=== PATIENT | male | born 1945 | race Caucasian/White ===

== ENCOUNTER → 2022-08-25 | Outpatient (CLI) | payer MEDICARE | END | disposition home or self-care (01) | LOC: LAB 09:25 | PROVIDERS: ATTEND Psychiatry & Neurology Behavioral Neurology & Neuropsychiatry | DX: R41.89 Other symptoms and signs involving cognitive functions and awareness (principal) ==

== ENCOUNTER 2022-12-01 03:57 | Inpatient (IN) | payer MEDICARE ==
[~2022-12-01] VITALS: Ht 177.8 cm; Wt 67.8 kg
[2022-12-01] VITALS (7 sets, daily range): BP systolic 135–160; BP diastolic 61–77
[2022-12-01] MEDS ORDERED: ASPIRIN81 M1 PO (04:11)
[2022-12-01] MEDS ORDERED: LIPITOR80 MG PO (04:12)
[2022-12-01] MEDS ORDERED: NAMENDA10 MG PO (04:12)
[2022-12-01] MEDS ORDERED: LEVOTHYROXINE50 MCG PO (04:12)
[2022-12-01 04:41] LABS: BASO % 0.5 % (0.0-1.0); EOS # 0.2 10*3/uL (0.0-0.4); EOS % 3.6 % (1.0-4.0); HEMATOCRIT 41.3 % (42.0-52.0); LYMPH # 0.8 10*3/uL (1.3-4.4); LYMPH % 19.1 % (27.0-41.0); MEAN CORPUSCULAR HGB 34.1 pg (27.0-31.0); MEAN CORPUSCULAR HGB CONC 33.4 g/dl (33.0-37.0); MONO # 0.3 10*3/uL (0.1-1.0); MONO % 7.5 % (3.0-9.0); NEUT % 69.1 % (47.0-73.0); PLATELET COUNT AUTOMATED 151 10*3/uL (130-400); RED BLOOD COUNT 4.05 10*6/uL (4.50-5.90); RED CELL DISTRI WIDTH 13.3 % (0-14.5); WHITE BLOOD COUNT 4.4 10*3/uL (4.8-10.8)
[2022-12-01 04:49] LABS: BILIRUBIN Negative (Negative); BLOOD Negative (Negative); CLARITY Clear (Clear); COLOR Yellow (Yellow); GLUCOSE Negative (Negative); KETONE Negative (Negative); LEUKO ESTERASE Negative (Negative); NITRITE Negative (Negative); UROBILINOGEN 0.2 E.U./dl (0.0-1.0)
[2022-12-01 04:55] LABS: ALKALINE PHOSPHATASE 81 U/L (46-116); BUN 16 mg/dl (9-23); CHLORIDE 106 mmol/L (98-107); POTASSIUM 3.8 mmol/L (3.4-5.1); SGPT/ALT 16 U/L (10-49); TOTAL PROTEIN 6.7 gm/dL (6.0-8.0)
[2022-12-01 05:25] LABS: RBC 0-2 rbc/hpf (0-2); WBC 0-2 wbc/hpf (0-5)
[2022-12-02] VITALS: BP 138/59
[2022-12-02 05:36] LABS: ALKALINE PHOSPHATASE 82 U/L (46-116); BUN 12 mg/dl (9-23); CHLORIDE 107 mmol/L (98-107); POTASSIUM 3.7 mmol/L (3.4-5.1); SGPT/ALT 19 U/L (10-49); TOTAL PROTEIN 6.2 gm/dL (6.0-8.0)
[2022-12-02 05:53] LABS: BASO % 0.4 % (0.0-1.0); EOS # 0.2 10*3/uL (0.0-0.4); EOS % 3.6 % (1.0-4.0); LYMPH # 0.9 10*3/uL (1.3-4.4); LYMPH % 18.5 % (27.0-41.0); MEAN CELL VOLUME 101.8 fl (80.0-94.0); MEAN CORPUSCULAR HGB 33.8 pg (27.0-31.0); MEAN CORPUSCULAR HGB CONC 33.3 g/dl (33.0-37.0); MEAN PLATELET VOLUME 9.5 fl (9.6-12.3); MONO # 0.5 10*3/uL (0.1-1.0); MONO % 9.3 % (3.0-9.0); NEUT # 3.4 10*3/uL (2.3-7.9); NEUT % 67.6 % (47.0-73.0); PLATELET COUNT AUTOMATED 154 10*3/uL (130-400); RED BLOOD COUNT 3.93 10*6/uL (4.50-5.90); RED CELL DISTRI WIDTH 13.5 % (0-14.5)
[2022-12-02 08:00] VITALS: BP 140/67
[2022-12-02 12:00] VITALS: BP 125/59
[2022-12-02 16:00] VITALS: BP 127/66
[2022-12-02 20:00] VITALS: BP 125/53
[2022-12-03] VITALS: BP 118/57
[2022-12-03 05:39] LABS: ALKALINE PHOSPHATASE 76 U/L (46-116); BUN 10 mg/dl (9-23); CHLORIDE 107 mmol/L (98-107); CHOLESTEROL 99 mg/dL (<200); LDL CHOLESTEROL 43 mg/dL (9-159); POTASSIUM 3.9 mmol/L (3.4-5.1); SGPT/ALT 12 U/L (10-49); TOTAL PROTEIN 5.9 gm/dL (6.0-8.0); TRIGLYCERIDES 67 mg/dl (<150)
[2022-12-03 05:58] LABS: BASO % 0.4 % (0.0-1.0); EOS # 0.2 10*3/uL (0.0-0.4); EOS % 3.6 % (1.0-4.0); HEMATOCRIT 38.8 % (42.0-52.0); LYMPH # 0.9 10*3/uL (1.3-4.4); LYMPH % 18.4 % (27.0-41.0); MEAN CORPUSCULAR HGB 34.1 pg (27.0-31.0); MEAN CORPUSCULAR HGB CONC 33.8 g/dl (33.0-37.0); MEAN PLATELET VOLUME 9.2 fl (9.6-12.3); MONO # 0.4 10*3/uL (0.1-1.0); MONO % 7.9 % (3.0-9.0); NEUT # 3.2 10*3/uL (2.3-7.9); NEUT % 69.5 % (47.0-73.0); PLATELET COUNT AUTOMATED 151 10*3/uL (130-400); RED BLOOD COUNT 3.84 10*6/uL (4.50-5.90); RED CELL DISTRI WIDTH 13.4 % (0-14.5); WHITE BLOOD COUNT 4.7 10*3/uL (4.8-10.8)
[2022-12-03 08:00] VITALS: BP 135/58; BP 139/52
[2022-12-03 12:00] VITALS: BP 148/73
[2022-12-03 16:00] VITALS: BP 149/64
[2022-12-03 20:00] VITALS: BP 140/60
[2022-12-04] VITALS: BP 147/58
[2022-12-04 05:35] LABS: ALKALINE PHOSPHATASE 75 U/L (46-116); BUN 12 mg/dl (9-23); CHLORIDE 107 mmol/L (98-107); POTASSIUM 3.9 mmol/L (3.4-5.1); SGPT/ALT 10 U/L (10-49); THYROID STIM HORMONE (HS) 6.016 uIU/ml (0.550-4.780); TOTAL PROTEIN 5.8 gm/dL (6.0-8.0)
[2022-12-04 06:32] LABS: BASO % 0.4 % (0.0-1.0); EOS # 0.2 10*3/uL (0.0-0.4); EOS % 3.8 % (1.0-4.0); HEMATOCRIT 37.9 % (42.0-52.0); LYMPH # 0.8 10*3/uL (1.3-4.4); LYMPH % 17.1 % (27.0-41.0); MEAN CELL VOLUME 101.1 fl (80.0-94.0); MEAN CORPUSCULAR HGB 33.9 pg (27.0-31.0); MEAN CORPUSCULAR HGB CONC 33.5 g/dl (33.0-37.0); MEAN PLATELET VOLUME 9.7 fl (9.6-12.3); MONO # 0.3 10*3/uL (0.1-1.0); MONO % 6.8 % (3.0-9.0); NEUT # 3.4 10*3/uL (2.3-7.9); NEUT % 71.7 % (47.0-73.0); PLATELET COUNT AUTOMATED 149 10*3/uL (130-400); RED BLOOD COUNT 3.75 10*6/uL (4.50-5.90); WHITE BLOOD COUNT 4.7 10*3/uL (4.8-10.8)
[2022-12-04 12:00] VITALS: BP 152/55
[2022-12-04 16:00] VITALS: BP 159/64
[2022-12-04 20:00] VITALS: BP 127/57
[2022-12-05] VITALS: BP 130/59
[2022-12-05 05:25] LABS: BUN 13 mg/dl (9-23); CHLORIDE 105 mmol/L (98-107); FREE T4 0.99 ng/dl (0.89-1.76); POTASSIUM 4.2 mmol/L (3.4-5.1)
[2022-12-05 06:32] LABS: BASO % 0.2 % (0.0-1.0); LYMPH # 0.4 10*3/uL (1.3-4.4); LYMPH % 7.3 % (27.0-41.0); MEAN CELL VOLUME 98.7 fl (80.0-94.0); MEAN CORPUSCULAR HGB 34.2 pg (27.0-31.0); MEAN CORPUSCULAR HGB CONC 34.6 g/dl (33.0-37.0); MEAN PLATELET VOLUME 9.3 fl (9.6-12.3); MONO # 0.4 10*3/uL (0.1-1.0); MONO % 6.1 % (3.0-9.0); NEUT # 5.1 10*3/uL (2.3-7.9); NEUT % 86.1 % (47.0-73.0); PLATELET COUNT AUTOMATED 174 10*3/uL (130-400); RED BLOOD COUNT 3.95 10*6/uL (4.50-5.90); RED CELL DISTRI WIDTH 12.6 % (0-14.5); WHITE BLOOD COUNT 5.9 10*3/uL (4.8-10.8)
[2022-12-05 08:00] VITALS: BP 143/66
[2022-12-05 12:00] VITALS: BP 119/53
[2022-12-05 16:00] VITALS: BP 124/54
[2022-12-05 20:00] VITALS: BP 129/62
[2022-12-06] VITALS: BP 122/56
[2022-12-06 07:49] VITALS: BP 122/58
[2022-12-06] MEDS ORDERED: LEVOTHYROXINE75 MCG PO (11:38)
[2022-12-06] MEDS ORDERED: LEVOTHYROXINE50 MCG PO (11:38)
[2022-12-06 12:00] VITALS: BP 126/60
== END 2022-12-06 13:40 | DRG 65 ==
LOC: ED 03:57 → EDHOLD 06:34 → 4E 06:34
PROVIDERS: Emergency Medicine; Internal Medicine; Registered Nurse; ADMIT Internal Medicine; ATTEND Internal Medicine
PROC: BD15YZZ Fluoroscopy of Upper GI using Other Contrast (ICD-10-PCS; principal; 2022-12-05)
DX: I63.9 Cerebral infarction, unspecified (principal); E44.0 Moderate protein-calorie malnutrition; S09.90XA Unspecified injury of head, initial encounter; E78.5 Hyperlipidemia, unspecified; E03.9 Hypothyroidism, unspecified; F03.90 Unspecified dementia, unspecified severity, without behavioral disturbance, psychotic disturbance, mood disturbance, and anxiety; I25.10 Atherosclerotic heart disease of native coronary artery without angina pectoris; R29.711 NIHSS score 11; R26.2 Difficulty in walking, not elsewhere classified; S61.512A Laceration without foreign body of left wrist, initial encounter; W18.39XA Other fall on same level, initial encounter; Z88.6 Allergy status to analgesic agent; Z88.8 Allergy status to other drugs, medicaments and biological substances; Z95.5 Presence of coronary angioplasty implant and graft; Z82.49 Family history of ischemic heart disease and other diseases of the circulatory system; Y93.89 Activity, other specified; Y92.89 Other specified places as the place of occurrence of the external cause; Y99.8 Other external cause status; Z68.21 Body mass index [BMI] 21.0-21.9, adult

== ENCOUNTER → 2023-01-15 | Outpatient (CLI) | payer MEDICARE ==
[~2023-01-15] MED LIST: ASPIRIN81 M1 PO; LEVOTHYROXINE50 MCG PO; LEVOTHYROXINE75 MCG PO; LIPITOR80 MG PO; NAMENDA10 MG PO
[2023-01-17 02:06] LABS: LUPUS DRVVT 44.6 sec (0.0-47.0); PTT-LA 31.8 sec (0.0-43.5)
[2023-01-17 03:06] LABS: LUPUS REFLEX INTERPRETATION Comment: (.)
== END | disposition home or self-care (01) ==
LOC: LAB 17:00
PROVIDERS: ATTEND Specialist
DX: G81.90 Hemiplegia, unspecified affecting unspecified side (principal); I69.30 Unspecified sequelae of cerebral infarction

== ENCOUNTER → 2023-02-01 | Outpatient (CLI) | payer MEDICARE | END | disposition home or self-care (01) | LOC: LAB 14:33 | PROVIDERS: ATTEND Psychiatry & Neurology Behavioral Neurology & Neuropsychiatry | DX: Z53.9 Procedure and treatment not carried out, unspecified reason (principal); I63.9 Cerebral infarction, unspecified ==

== ENCOUNTER → 2023-11-09 | Outpatient (CLI) | payer MEDICARE | END | disposition home or self-care (01) | LOC: RESCLI 00:39 | PROVIDERS: ATTEND Internal Medicine | DX: I63.9 Cerebral infarction, unspecified (principal); E03.9 Hypothyroidism, unspecified; E78.2 Mixed hyperlipidemia; G30.9 Alzheimer's disease, unspecified; F02.80 Dementia in other diseases classified elsewhere, unspecified severity, without behavioral disturbance, psychotic disturbance, mood disturbance, and anxiety; J30.2 Other seasonal allergic rhinitis; F32.A Depression, unspecified; N40.0 Benign prostatic hyperplasia without lower urinary tract symptoms; R11.2 Nausea with vomiting, unspecified; I48.0 Paroxysmal atrial fibrillation; Z79.899 Other long term (current) drug therapy; Z88.8 Allergy status to other drugs, medicaments and biological substances; Z98.890 Other specified postprocedural states; Z82.49 Family history of ischemic heart disease and other diseases of the circulatory system ==